=== PATIENT | female | born 1985 | race American Indian/Alaskan Native ===

== ENCOUNTER 2019-06-28 13:01 | Emergency (ER) | payer OTHER ==
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
[2019-06-28] MEDS ORDERED: NORCO 7.5/325 PO ONE (15:43)
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
[2019-06-28] MEDS ORDERED: NORCO 5/325 PO ONE (20:12)
[2019-06-28 20:34] VITALS: BP 118/80
== END 2019-06-28 20:34 | disposition home or self-care (01) ==
LOC: ED 13:01
DX: S09.90XA Unspecified injury of head, initial encounter (principal); M25.562 Pain in left knee; M54.5 Low back pain; Y99.8 Other external cause status; V89.2XXA Person injured in unspecified motor-vehicle accident, traffic, initial encounter; Y93.89 Activity, other specified; Y92.488 Other paved roadways as the place of occurrence of the external cause; Z79.1 Long term (current) use of non-steroidal anti-inflammatories (NSAID)
CPT/HCPCS: 70450; 72131; 99283